=== PATIENT | female | born 1960 | race Two or more races ===

== ENCOUNTER → 2017-05-17 | Outpatient (CLI) | payer OTHER ==
--- NOTE | 2017-05-17 09:17 | RAD ---
EXAM: Thyroid ultrasound HISTORY: Thyromegaly. COMPARISON: None. FINDINGS: Sonographic evaluation of the thyroid gland was performed. The right lobe measures 6.3 x 3.4 x 2.4 cm. A slightly hyperechoic solid nodule in the right interpolar region measures 2.7 x 1.7 x 2.3 cm. Smaller nodules elsewhere on the right are mostly cystic and measure up to 7 mm. The left lobe measures 5.7 x 2.6 x 2.0 cm. A solid hypoechoic nodule at the lower pole measures 1.5 x 1.0 cm. The isthmus measures 6 mm. It contains small nodules that are hypoechoic and solid and measure up to 8 x 3 mm. IMPRESSION: 1. 2.7 cm solid nodule on the right. This is likely benign by characteristics, but ultrasound-guided fine-needle aspiration is suggested to confirm benignity at this size. 2. A 1.5 cm hypoechoic nodule on the left could also be sampled or followed to confirm benignity. Other subcentimeter nodules are likely benign. 3. Mild diffuse thyroid enlargement. Correlate with thyroid function tests.
== END | disposition home or self-care (01) ==
LOC: US 07:37
PROVIDERS: ATTEND Physician Assistant
DX: E01.0 Iodine-deficiency related diffuse (endemic) goiter (principal)
CPT/HCPCS: 76536

== ENCOUNTER → 2019-01-26 | Outpatient (CLI) | payer MEDICARE, OTHER ==
--- NOTE | 2019-01-26 13:46 | RAD ---
DATE: 01/26/2019. EXAM: Bilateral screening mammogram. HISTORY: Routine screening mammogram. Baseline. COMPARISON: None This study was interpreted with the benefit of Computerized Aided Detection (CAD). FINDINGS: Breast Density: DENSE The breast Parenchyma is dense, which could reduce the sensitivity of mammography. Breast parenchyma level density D.. The skin and nipple are within normal limits. No suspicious calcifications, spiculated mass or area of architectural distortion. IMPRESSION: No mammographic evidence of malignancy. BI-RADS CATEGORY: 1 NEGATIVE RECOMMENDED FOLLOW-UP: 12M 12 MONTH FOLLOW-UP PQRS compliance statement: Patient information was entered into a reminder system with a target due date for the next mammogram. Mammography is a sensitive method for finding small breast cancers, but it does not detect them all and is not a substitute for careful clinical examination. A negative mammogram does not negate a clinically suspicious finding and should not result in delay in biopsying a clinically suspicious abnormality. "Our facility is accredited by the [employer] Mammography [employer]."
== END | disposition home or self-care (01) ==
LOC: MAMMO 12:43
PROVIDERS: ATTEND Physician Assistant
DX: Z12.31 Encounter for screening mammogram for malignant neoplasm of breast (principal); N64.89 Other specified disorders of breast
CPT/HCPCS: 77063; 77067

== ENCOUNTER → 2020-02-01 | Outpatient (CLI) | payer OTHER ==
--- NOTE | 2020-02-02 14:14 | RAD ---
EXAM: BILATERAL DIGITAL 3D SCREENING MAMMOGRAPHY. HISTORY: Routine mammographic screening. TECHNIQUE: Bilateral digital 3D and tomographic images were obtained in CC and MLO projections. Computer-aided detection was applied. COMPARISON: 01/26/2019. COMPOSITION: C. The breasts are heterogeneously dense, which may obscure small masses. FINDINGS: There are no suspicious masses, microcalcifications or architectural distortion. The parenchymal pattern is stable. Scattered and coarse calcifications are benign. BI-RADS CATEGORY 2: Benign. RECOMMENDATION: 1. Routine screening mammography in one year. If mammography demonstrates dense breast tissue (heterogenously dense or extremely dense, category C or D), which could hide abnormalities, and if other risk factors for breast cancer have been identified, supplemental screening tests that may be suggested by the ordering physician may be of benefit. Dense breast tissue, in and of itself, is a relatively common condition. Therefore, this information is not provided to cause undue concern, but rather to raise awareness and to promote discussion with the referring physician regarding the presence of other risk factors, in addition to dense breast tissue. The results of this mammography examination is provided to the patient and referring physician. The patient should contact their referring physician if any questions or concerns exist regarding this report. PQRS compliance statement - Patient information was entered into a reminder system with a target due date for the next mammogram. "Our facility is accredited by the [employer] Mammography Program." Electronically signed by: Seng Vargas MD (02/02/2020 2:11 PM) [email or web address]
== END ==
LOC: MAMMO 08:15
PROVIDERS: ATTEND Physician Assistant
DX: Z12.31 Encounter for screening mammogram for malignant neoplasm of breast (principal)
CPT/HCPCS: 77063; 77067

== ENCOUNTER → 2021-02-07 | Outpatient (CLI) | payer OTHER ==
--- NOTE | 2021-02-07 14:37 | RAD ---
PROCEDURE: MG BILAT SCREEN+CECELIA HISTORY: The patient is 60 years old and is seen for Reason: SCREENING / Spl. Instructions: / Histor y: . COMPARISON: February 01, 2020 TECHNIQUE: CC and MLO views of both breasts were obtained. Images were processed by the [place] computer-aided detection system. DENSITY: The breast parenchyma is extremely dense, which could obscure a lesion on mammography. FINDINGS: No developing mass, suspicious calcifications or architectural distortion. IMPRESSION: Negative. No evidence of malignancy. Recommend annual screening mammograms per [employer] guidelines. She will be due in one year. BI-RADS category 1 Negative Patient entered into a reminder system for annual screening mammogram. Electronically signed by: Emmanuel Hansen DO (02/07/2021 2:34 PM) [id number]
== END ==
LOC: MAMMO 10:34
PROVIDERS: ATTEND Physician Assistant
DX: Z12.31 Encounter for screening mammogram for malignant neoplasm of breast (principal)
CPT/HCPCS: 77063; 77067

== ENCOUNTER 2021-05-01 16:24 | Emergency (ER) | payer OTHER ==
[~2021-05-01] VITALS: Ht 152.4 cm; Wt 63.6 kg
[2021-05-01] MEDS ORDERED: CYCL-331 PO (17:48)
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
[2021-05-01] MEDS ORDERED: KETOROLAC 15 MG/ML VIAL. ONE (18:37)
[2021-05-01 18:41] VITALS: BP 148/79
[2021-05-01] MEDS ORDERED: KETOROLAC 15 MG/ML VIAL. IM ONE (18:45)
== END 2021-05-01 18:45 | disposition home or self-care (01) ==
LOC: ER 16:24
DX: M54.2 Cervicalgia (principal); M54.50 Low back pain, unspecified; V49.9XXA Car occupant (driver) (passenger) injured in unspecified traffic accident, initial encounter; Y93.89 Activity, other specified; Y92.89 Other specified places as the place of occurrence of the external cause; Y99.8 Other external cause status
CPT/HCPCS: 70450; 72100; 72125; 96372; 99285; J1885